=== PATIENT | female | born 2000 | race Caucasian/White ===

== ENCOUNTER 2021-06-27 21:55 | Emergency (ER) | payer MEDICAID ==
[~2021-06-27] VITALS: Ht 165.1 cm; Wt 59.9 kg
[2021-06-27 22:21] VITALS: BP_SYST 100
--- NOTE | 2021-06-27 22:34 | NUR ---
Patient ambulatory to bed 7 for evaluation
--- NOTE | 2021-06-27 22:43 | NUR ---
Dr. Lan [facility] for pt eval
--- NOTE | 2021-06-27 22:48 | NUR ---
Pt BIB family to ED C/O superficial bite to right posterior calf by domestic dog earlier today. Patient reports localized pain. No purulent drainage fevers or chills. No distal paresthesias or weakness reported.
[2021-06-27] MEDS ORDERED: DIPH-TET-PERTUS Vaccine 0.5 ML VIAL (ADACEL) I.M. ONE (23:00)
[2021-06-27] MEDS ORDERED: AMOXICILLIN/CLAVULANATE POTASSIUM 875 MG TABLET PO ONE (23:00)
--- NOTE | 2021-06-27 23:11 | NUR ---
Patient given written and verbal discharge instructions and verbalizes understanding. ER MD discussed with patient the results and treatment provided. Patient in stable condition. ID arm band removed. Rx of Augmentin given. Patient educated on pain management and to follow up with PMD. Pain Scale 0/10 Opportunity for questions provided and answered. Medication side effect fact sheet provided.
[2021-06-27] MEDS ORDERED: BACITRACIN ZINC 15 GM TOPICAL OINTMENT TP ONE (23:15)
[2021-06-27 23:19] VITALS: BP_SYST 100
== END 2021-06-27 23:11 | disposition home or self-care (01) ==
LOC: SED 21:55
DX: S81.851A Open bite, right lower leg, initial encounter (principal); W54.0XXA Bitten by dog, initial encounter; Y93.89 Activity, other specified; Y92.89 Other specified places as the place of occurrence of the external cause; Y99.8 Other external cause status
CPT/HCPCS: 90715; 99283